=== PATIENT | female | born 1975 | race Caucasian/White ===

== ENCOUNTER 2018-07-08 16:42 | Emergency (ER) | payer OTHER ==
[2018-07-08] MEDS ORDERED: ACETAMINOPHEN 325 MG TAB PO ONE (17:18)
[2018-07-08] MEDS ORDERED: ACETAMINOPHEN 500 MG TAB ONE (17:22)
[2018-07-08] MEDS ORDERED: ACETAMINOPHEN 500 MG TAB PO ONE (17:24)
--- NOTE | 2018-07-08 17:24 | EDPHY ---
H & P Stated Complaint: left sided facial/head numbness episode at 1450 with visual changes Time Seen by Provider: 07/08/18 16:57 HPI/ROS: CHIEF COMPLAINT: Visual loss, transient HISTORY OF PRESENT ILLNESS: This is a healthy 42-year-old female who is sitting at her desk, working on a computer and also doing some paperwork, when she had the acute onset of loss of vision in her left eye. Initially she felt an odd sensation, somewhat like numbness, above and around her eye. She then stated that the vision in her left eye went black, as if a cloud came over it. This lasted 5-10 seconds and resolved. She felt some pressure in the left forehead that then seemed to move downward towards in behind the eye. She has a mild headache now. She states that it is not uncommon for her to experience mild headaches. Except for the mild headache, all of this has resolved. She was not aware of any concomitant confusion, speech difficulty, limb numbness, or limb weakness. The visual change that she describes does not sound like visual scotoma. She has not had any recent head or neck trauma. No chiropractic manipulations. No recent illnesses. No fever. She has never experienced anything like this before. When questioned, she notes that she is having some right-sided lateral neck pain. REVIEW OF SYSTEMS: A ten system review of systems was performed and is negative with the exception of the items mentioned in the HPI. Past medical history: Negative Past surgical history: Negative Family history: Her father has type 2 diabetes. Her mother has brain tumors that have been surgically removed, she does not know what kind of tumors these are. Both parents are alive. Social history: She works as an consolidation accountant. She does not use tobacco products. She rarely drinks alcohol. She has neverused any illicit drugs. She is here with her boyfriend. General Appearance: Alert. Vital signs reviewed. Eyes: Pupils equal and round, no conjunctival injection, no discharge. Anicteric. ENT, Mouth: Mucous membranes are moist, no oropharyngeal erythema or edema. Neck: No lymphadenopathy, no swelling, supple. No meningeal signs. No carotid bruits. Respiratory: Lungs are clear to auscultation; no wheezes, rales, or rhonchi. Cardiovascular: Regular rate and rhythm; no murmur, rub, or gallop. Gastrointestinal: Abdomen is soft and nontender, no masses or organomegaly, bowel sounds normal. Skin: Warm and dry, no rashes on exposed skin, normal color. Back: Nontender to palpation over the thoracolumbar spine. No CVAT. Extremities: No lower extremity edema, no calf tenderness or swelling. Neurological: Alert and oriented. Moving all four extremities easily and equally. Cranial nerves II through XII are examined and are intact. Optic discs are sharp. Strength is 5 over 5 bilaterally with testing of all major motor groups. Sensation is intact to light touch over all 4 extremities. Deep tendon reflexes are 2+ in the biceps and knees bilaterally. Gait is normal. [id number] is performed accurately. Psychiatric: Normal affect. - Personal History LMP (Females 10-55): 8-14 Days Ago - Medical/Surgical History Other PMH: denies medical and surgical - Social History Smoking Status: Never smoked Constitutional: Initial Vital Signs Temperature (C) 36.5 C 07/08/18 16:50 Heart Rate 63 07/08/18 16:50 Respiratory Rate 18 07/08/18 16:50 Blood Pressure 108/77 07/08/18 16:50 O2 Sat (%) 97 07/08/18 16:50 O2 Delivery Mode Room Air Allergies/Adverse Reactions: No Known Allergies Allergy (Unverified 07/08/18 16:50) Home Medications: Medication Instructions Recorded NK [No Known Home Meds] 07/08/18 Medical Decision Making - Diagnostics Imaging Results: Imaging Impressions Head CT 07/08/18 17:17 Impression: 1. No significant intracranial abnormality seen. If symptoms worsen, additional imaging may be necessary. Head CTA 07/08/18 17:17 Impression: 1. Normal CT angiogram of the neck. 2. Normal CT angiogram of the upper [place] of [place], as detailed above. Note: All calculations were performed using NASCET criteria. Findings discussed with Radhika Nelson M.D. at 18:45 hour, 07/08/2018. Neck CTA 07/08/18 17:[address]: [address] angiogram of the neck. 2. Normal CT angiogram of the upper [place] of [place], as detailed above. Note: All calculations were performed using NASCET criteria. Findings discussed with Radhika Nelson M.D. at 18:45 hour, 07/08/2018. ED Course/Re-evaluation: Healthy 42-year-old with transient visual loss in the left eye, some associated transient facial numbness, followed by mild headache. This is most likely migraine phenomena. She has no history of migraine headaches. However, the description is concerning and I feel the CT of the head followed by CT of the head neck is appropriate in this setting. She is also complaining of some neck pain. She has not had trauma or chiropractic manipulations. Will give Tylenol for headache pain. Neurologic exam is entirely normal. Patient re-evaluated at 6:15 p.m.. Her headache has resolved. No further visual difficulties. Head CT reviewed by me, discussed with Dr. Anaya. CT normal. Head and neck CTA without dissection or plaque, normal. No evidence of stroke on studies. Patient remains headache free. We discussed possible etiologies of transient visual loss including stroke (hemorrhagic or ischemic), vascular dissection, brain tumor, optic neuritis/MS, polyarteritis nodosa, tumor, and headache phenomenon. I think this is most likely a headache phenomenon. She is comfortable returning home. Neurology referral given. Danger signs reviewed. - Data Points Laboratory Results: 07/08/18 17:31 POC Hgb 12.2 gm/dL L gm/dL (12.6-16.3) POC Hct 36 % L % (38-47) POC Sodium 140 mEq/L mEq/L (135-145) POC Potassium 3.7 mEq/L mEq/L (3.3-5.0) POC Chloride 103 mEq/L mEq/L (97-110) POC Total CO2 25 mEq/L mEq/L (22-31) POC BUN 16 mg/dL mg/dL (7-23) POC Creatinine 0.7 mg/dL mg/dL (0.6-1.0) POC Glucose 89 mg/dL mg/dL (70-100) Medications Given: Discontinued Medications Acetaminophen (Tylenol) 1,000 mg PO EDNOW ONE Stop: 07/08/18 17:19 Last Admin: 07/08/18 17:24 Dose: Not Given Acetaminophen (Tylenol) 1,000 mg PO EDNOW ONE Stop: 07/08/18 17:25 Last Admin: 07/08/18 17:24 Dose: 1,000 mg Point of Care Test Results: Chemistry 07/08/18 17:31 POC Sodium 140 mEq/L mEq/L (135-145) POC Potassium 3.7 mEq/L mEq/L (3.3-5.0) POC Chloride 103 mEq/L mEq/L (97-110) POC Total CO2 25 mEq/L mEq/L (22-31) POC BUN 16 mg/dL mg/dL (7-23) POC Creatinine 0.7 mg/dL mg/dL (0.6-1.0) POC Glucose 89 mg/dL mg/dL (70-100) ISTAT H&H 07/08/18 17:31 POC Hgb 12.2 gm/dL L gm/dL (12.6-16.3) POC Hct 36 % L % (38-47) Departure - Departure Disposition: Home, Routine, Self-Care Clinical Impression: Transient visual loss of left eye, Headache above the eye region Condition: Good Instructions: Acute Headache (ED) Referrals: Trisha Garrison [Primary Care Provider] - As per Instructions Alli Elias MD [Medical Doctor] - As per Instructions
[2018-07-08] MEDS ORDERED: IOPAMIDOL (ISOVUE-370) 150 ML BTL IV ONE (17:37)
[2018-07-08 18:30] VITALS: BP 110/68
== END 2018-07-08 19:03 | disposition home or self-care (01) ==
LOC: CED 16:42
DX: R51 Headache (principal); H53.122 Transient visual loss, left eye
CPT/HCPCS: 70450-PO; 70496-PO; 70498-PO; 82435-PO; 82565-PO; 82947-PO; 84132-PO; 84295-PO; 84520-PO; 85014-ER; 99285-ER; Q9967